=== PATIENT | female | born 1940 | race Caucasian/White ===

== ENCOUNTER 2016-03-12 11:55 | Outpatient (CLI) | payer OTHER ==
--- NOTE | 2016-03-12 14:29 | DIAGNOSTIC IMAGING REPORT ---
PROCEDURE: CT LUNG/MEDIASTINUM BIOPSY CLINICAL INDICATION: Left upper lung nodule. TECHNIQUE: Informed consent was obtained and the patient was advised of the usual risks and complications including infection, bleeding, allergy and pneumothorax. COMPARISON: Comparison is made to CT thorax from [facility] on 02/27/2016. FINDINGS: Supine position. Following sterile preparation and 1% lidocaine local anesthetic, CT guidance was utilized to place a 19 gauge coaxial needle in the left upper parasternal chest, and directed into a 2.2 cm left upper lung nodule. Four core biopsy samples were obtained with a 20-gauge biopsy instrument. There was no evidence of pneumothorax post biopsy images. The patient tolerated the procedure reasonably well and was transferred back to the main department for observation. IMPRESSION: 1. Successful CT-guided biopsy of left upper medial lung mass. 2. Followup chest x-rays are pending. All CT scans at this facility use dose modulation, iterative reconstruction, and/or weight-based dosing when appropriate to reduce radiation dose to as low as reasonably achievable.
--- NOTE | 2016-03-12 14:29 | DIAGNOSTIC IMAGING REPORT ---
PROCEDURE: CT LUNG/MEDIASTINUM BIOPSY CLINICAL INDICATION: Left upper lung nodule. TECHNIQUE: Informed consent was obtained and the patient was advised of the usual risks and complications including infection, bleeding, allergy and pneumothorax. COMPARISON: Comparison is made to CT thorax from [facility] on 02/27/2016. FINDINGS: Supine position. Following sterile preparation and 1% lidocaine local anesthetic, CT guidance was utilized to place a 19 gauge coaxial needle in the left upper parasternal chest, and directed into a 2.2 cm left upper lung nodule. Four core biopsy samples were obtained with a 20-gauge biopsy instrument. There was no evidence of pneumothorax post biopsy images. The patient tolerated the procedure reasonably well and was transferred back to the main department for observation. IMPRESSION: 1. Successful CT-guided biopsy of left upper medial lung mass. 2. Followup chest x-rays are pending. All CT scans at this facility use dose modulation, iterative reconstruction, and/or weight-based dosing when appropriate to reduce radiation dose to as low as reasonably achievable.
--- NOTE | 2016-03-12 14:46 | DIAGNOSTIC IMAGING REPORT ---
PROCEDURE: XR CHEST 1 VIEW INDICATION: Follow-up left lung biopsy (40 minutes). TECHNIQUE: PA view (1410 hours). COMPARISON: Compared to chest x-ray on 03/15/2015. FINDINGS: There is no evidence of left pneumothorax. There is mild chronic scarring at the left lung base. Right lung is clear. Heart is of normal size. Mediastinum is normal (tortuous aorta). Thorax is unchanged. IMPRESSION: 1. Status post left lung biopsy. No evidence of pneumothorax. 2. The patient was discharged home to the care of her daughter in satisfactory condition with instructions to call me for any untoward symptoms (chest pain, shortness of breath).
== END 2016-03-12 23:00 ==
LOC: CT SRH 11:55
PROC: BB241ZZ Computerized Tomography (CT Scan) of Bilateral Lungs using Low Osmolar Contrast (ICD-10-PCS; principal; 2016-03-12)
PROC: 0BBG3ZX Excision of Left Upper Lung Lobe, Percutaneous Approach, Diagnostic (ICD-10-PCS; principal; 2016-03-12)
DX: R91.1 Solitary pulmonary nodule (principal)
CPT/HCPCS: 82445; 82584

== ENCOUNTER 2016-03-30 12:21 | Outpatient (CLI) | payer OTHER ==
--- NOTE | 2016-03-30 14:15 | DIAGNOSTIC IMAGING REPORT ---
PROCEDURE: CT ABD/PELVIS WITH CONTRAST CLINICAL INDICATION: SC LUNG CA TECHNIQUE: 100 ml of Isovue 300 were injected intravenously and axial images were obtained of the entire abdomen and pelvis with sagittal and coronal reformations. COMPARISON: None. FINDINGS: ABDOMEN: Emphysema. Heart size is normal. Liver, gallbladder, pancreas, spleen (splenule) and adrenal glands are normal. Bilateral renal cysts, largest in the right kidney measuring 5.5 cm. Severe atherosclerosis of the aorta but no aneurysm. Nonspecific bowel gas pattern. Old right rib fractures. PELVIS: Mild sigmoid diverticulosis. Appendix not visualized. Hysterectomy. Normal bladder. No pelvic mass, inflammatory changes or free fluid. L2 vertebral plasty. Chronic moderate L1 compression fracture. IMPRESSION: 1. Emphysema 2. Mild sigmoid diverticulosis 3. Hysterectomy All CT scans at this facility use dose modulation, iterative reconstruction, and/or weight-based dosing when appropriate to reduce radiation dose to as low as reasonably achievable.
== END 2016-03-30 23:00 ==
LOC: CT SRH 12:21
DX: J43.9 Emphysema, unspecified (principal); K57.30 Diverticulosis of large intestine without perforation or abscess without bleeding; Z90.710 Acquired absence of both cervix and uterus

== ENCOUNTER 2016-07-27 08:00 | Outpatient (CLI) | payer OTHER ==
--- NOTE | 2016-07-27 11:07 | DIAGNOSTIC IMAGING REPORT ---
PROCEDURE: CT THORAX WITHOUT CONTRAST INDICATION: LUNG CA, COMPARE TO PREVIOUS TECHNIQUE: Noncontrast axial images were obtained of the chest with coronal and sagittal reformations. COMPARISON: Biopsy images 03/12/2016, outside chest CT 02/27/2016, and CT abdomen pelvis 03/30/2016 FINDINGS: Medial/anterior left upper lobe lung mass has considerably decreased in size, now measuring 1.5 x 0.7 cm, previously 2.4 x 2.0 cm. There is slight thickening along the medial mediastinal reflection adjacent to this mass and residual spiculation to the anterior pleural surface. A small AP window lymph node has decreased in size measuring approximately 4 mm in short axis, previously 5 mm. Stable shoddy adenopathy in the paratracheal region. Precarinal lymph node is stable in size. No new adenopathy. The thyroid gland is stable with mild left lobe enlargement. There are severe emphysematous changes throughout the lungs. Mild bilateral lower lobe peribronchial thickening. No pleural effusion. The heart size is stable. No pericardial effusion. Mild coronary and aortic valve calcification. Mild aortic arch atherosclerosis. Dystrophic calcification in the left coracoclavicular region. Slight deformity of remote, healed right rib fractures. 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 Inferior endplate irregularity and mild compression deformity of T7. Moderate, chronic compression fracture of L1 and kyphoplasty changes at L2. Upper Abdomen: Images demonstrate multiple cystic structures in each kidney. Severe aortic calcification. Minimal thickening of the left adrenal gland, splenule anterior to the spleen, and moderate retained stool throughout the visible colon. IMPRESSION: 1. Significant interval decrease in size of left anterior upper lobe lung mass. 2. Decreased size of small adjacent mediastinal lymph nodes. 3. Severe emphysema with changes suggestive of mild chronic bronchitis. 4. Mild to severe systemic atherosclerotic calcification. 5. Chronic thoracic and lumbar compression fractures.
== END 2016-07-27 23:00 | disposition home or self-care (01) ==
LOC: CT SRH 08:00
DX: C34.90 Malignant neoplasm of unspecified part of unspecified bronchus or lung (principal)
CPT/HCPCS: 90047; 90074; 95059